=== PATIENT | female | born 1950 ===

== ENCOUNTER 2025-03-03 15:22 | Outpatient (REF) | payer MEDICARE, BC, SELFPAY ==
[2025-03-03 21:23] LABS: HCT 43.3 % (36.0-46.0); HGB 13.7 g/dL (11.2-15.7); MCH 29.6 pg (27.0-33.0); MCHC 31.6 % (32.0-36.0); MCV 94 fL (80-95); MPV 11.6 fL (8.0-11.0); Platelet Count 252 10^3/uL (130-400); RBC 4.63 10^6/uL (3.93-5.22); RDW 12.7 % (11.7-14.6); RDW-SD 43.3 fL
[2025-03-03 21:50] LABS: ALT 8 U/L (14-59); AST 21 U/L (15-37); Albumin 3.9 g/dL (3.4-5.0); Alkaline Phosphatase 104 U/L (46-116); Anion Gap 5.2 mmol/L (3-11); BUN 20 mg/dL (7-18); Bilirubin, Total 0.2 mg/dL (0.2-1.0); CO2 33.8 mmol/L (21.0-32.0); CREATININE 0.8 mg/dL (0.55-1.02); Calcium 9.8 mg/dL (8.5-10.1); Chloride 103 mmol/L (98-107); Estimated GFR 77.27 (mL/min/1.73m2); Glucose 114 mg/dL (74-106); Sodium 142 mmol/L (136-145); TSH 1.48 uIU/mL (0.36-3.74); Total Protein 7.3 g/dL (6.4-8.2)
== END 2025-03-03 15:23 | disposition home or self-care (01) ==
LOC: NCHCN 15:22
PROVIDERS: Visit Provider Family Medicine
DX: R42 Dizziness and giddiness (principal)
CPT/HCPCS: 80053; 85027; 84443